=== PATIENT | female | born 1950 | race Caucasian/White ===

== ENCOUNTER → 2017-07-28 | Day surgery (SDC) | payer OTHER ==
[2017-07-27 12:26] LABS: BASOPHILS % 0.7 % (0.0-1.0); EOSINOPHILS # (AUTO) 0.3 (0.0-0.4); EOSINOPHILS % 4.4 % (0.0-6.0); HEMATOCRIT 39.8 % (34.2-44.1); LYMPHOCYTES # (AUTO) 1.4 (1.0-3.2); LYMPHOCYTES % 22.8 % (18.0-39.1); MEAN CORPUSCULAR HGB CONC 32.7 g/dL (31-35); MEAN CORPUSCULAR VOLUME 85.8 fL (81-99); MONOCYTES # (AUTO) 0.3 (0.2-0.8); MONOCYTES % 5.2 % (4.4-11.3); NEUTROPHILS % 66.6 % (38.7-80.0); PLATELET COUNT 164 x10e3/uL (140-360); RED BLOOD COUNT 4.64 x10e6/uL (3.6-5.1); RED CELL DISTRIBUTION WIDTH 12.5 % (11.7-14.4)
[2017-07-27 12:43] LABS: ANION GAP 12.3 mmol/L (8-16); CALCIUM 8.9 mg/dL (8.4-10.2); CREATININE, SERUM 0.96 mg/dL (0.57-1.11); POTASSIUM 5.3 mmol/L (3.5-5.1)
--- NOTE | 2017-07-27 13:14 | Diagnostic Imaging Report ---
PROCEDURE: Frontal and lateral views of the chest. COMPARISON: None. INDICATIONS: PRE-OPERATIVE CHEST X-RAY FOR LT. WRIST SURGERY FINDINGS: Lines/tubes: None. Lungs: The lungs are well inflated. Linear subsegmental atelectasis or scarring in the right middle lobe. Lungs are otherwise clear. There is no evidence of pneumonia or pulmonary edema. Pleura: There is no pleural effusion or pneumothorax. Heart and mediastinum: The heart and the mediastinum are normal. Bones: No acute bony abnormality. IMPRESSION: 1. No acute cardiopulmonary abnormalities. 2. Linear subsegmental atelectasis or scarring in the right middle lobe. Dillon Zeng M.D. Dictated by: Dillon Zeng M.D. on 07/27/2017 at 13:21 Electronically approved by: Dillon Zeng M.D. on 07/27/2017 at 13:21
[~2017-07-28] MED LIST: ALLOPURINOL300 MG PO; AMITRIPTYLINE H25 MG PO; BACITRACIN 50,000 UNIT VIAL ONE; BUPIVACAINE HCL 0.5% INJ 30 ML VIAL INJ ONE; CEFAZOLIN SOD 2 GM/D5W 50ML 50 ML IV ONE; CLINDAMYCIN PHOS 900MG/ D5W 50 50 ML IV ONE; DEXAMETHASONE SOD PHOS INJ 4 MG/ML VIAL IV ONE; EXCEDRIN MIGRA1 EAC3 PO; FENTANYL CITRATE/PF 100MCG/2 ML INJ ONE; GLIPIZIDE5 MG PO; HYDROCODONE/APAP 5MG-325MG TAB ONE; HYDROMORPHONE 2MG/ML INJ ONE; KETOROLAC TROMETHAMINE 30 MG/ML VIAL IV ONE; LABETALOL HCL IV 5 MG/ML 20ML MDV IV ONE; LIDOCAINE HCL 2% LOCAL INJ 5 ML SDV VIAL INJ ONE; LISINOPRIL-HCT1 EACH PO; MIDAZOLAM HCL 2 MG/2 ML VIAL ONE; NORCO 5-325 TA1 EACH PO; OMEPRAZOLE40 MG PO; ONDANSETRON HCL INJ 2 MG/ML VIAL IV ONE; OXYBUTYNIN CHLOR5 MG PO; PAROXETINE HCL40 MG PO; PROPOFOL IV EMULSION 10 MG/ML 20 ML VIAL IV ONE; SEVOFLURANE INHAL SOLN 250 ML PEN BTL INH ONE; ULTRAM 50MG50 MG PO
--- NOTE | 2017-07-29 16:47 | Operative Report ---
DATE OF PROCEDURE: July 29, 2017 PREOPERATIVE DIAGNOSIS: Displaced left distal radius fracture. POSTOPERATIVE DIAGNOSIS: Displaced left distal radius fracture. PROCEDURES PERFORMED: Patient underwent attempted closed reduction of her left distal radius fracture followed by an open reduction and dorsal plate fixation of the comminuted distal radius fracture procedure. Allograft bone grafting of a comminuted left distal radius fracture. INDUSTRIAL SAFETY ENGINEER: None. ANESTHESIA: General endotracheal intubation anesthesia. IV FLUIDS: Per the anesthesia record. BRIEF DESCRIPTION OF THE PATIENT'S OPERATIVE PROCEDURE: Ms. Rao was taken to the operating room and placed in supine position on the operating table. Following induction of general anesthesia as well as endotracheal intubation, patient's left upper extremity was examined under anesthesia. She was found to have swelling about her wrist joint. Fluoroscopic evaluation of the wrist joint demonstrated a dorsally displaced and comminuted distal radius fracture. The patient's upper extremity was prepped and draped in standard surgical fashion. Case was begun by attempting a closed reduction of the left distal radius fracture. The wrist was under anesthesia and fluoroscopic evaluation demonstrated improved alignment but continued marked displacement of the dorsal column of the wrist joint. An incision was then created on the dorsum of the wrist. This incision was deepened to the level of extensor retinaculum. The extensor retinaculum was opened for 4th dorsal compartment. The common extensor tendons were translated out of the compartment. The 3rd compartment was then opened and the extensor for the thumb was translated out of its compartment. Full-thickness flaps were then elevated from the dorsum of the wrist and this revealed the underlying comminuted dorsally displaced distal radius fracture. The fracture site was cleaned thoroughly. Bone graft was placed within the distal radius. A plate was affixed to the dorsum of the radius. That plate was then affixed to the distal radius with combinations of cortical and locking screws. This resulted in marked improvement in the realignment of the wrist joint and reduction of the dorsal comminution of the wrist. The wound was irrigated. The wrist was closed in a multilayer fashion. Sterile dressings were applied as well as a well-padded sugar tong splint. The patient was then awakened and taken to post anesthesia care unit in stable condition. Job#: [id number]
== END | disposition home or self-care (01) ==
LOC: OR 09:21
PROVIDERS: ATTEND Specialist
DX: S52.552A Other extraarticular fracture of lower end of left radius, initial encounter for closed fracture (principal); E11.9 Type 2 diabetes mellitus without complications; I10 Essential (primary) hypertension; G47.33 Obstructive sleep apnea (adult) (pediatric); K21.9 Gastro-esophageal reflux disease without esophagitis; W01.0XXA Fall on same level from slipping, tripping and stumbling without subsequent striking against object, initial encounter; Y92.009 Unspecified place in unspecified non-institutional (private) residence as the place of occurrence of the external cause; Z01.810 Encounter for preprocedural cardiovascular examination; Z01.812 Encounter for preprocedural laboratory examination; Z01.818 Encounter for other preprocedural examination; Z68.38 Body mass index [BMI] 38.0-38.9, adult; Z96.653 Presence of artificial knee joint, bilateral
CPT/HCPCS: 25607; 36415 ×2; 71020; 80048; 82948; 85025; 93005; C1713 ×5; J1100; J1170; J1885; J2001; J2250; J2405; J3490; 76001